=== PATIENT | female | born 1970 | race Caucasian/White ===

== ENCOUNTER 2020-08-18 12:24 | Emergency (ER) | payer MEDICAID ==
[~2020-08-18] VITALS: Ht 160 cm; Wt 44.5 kg
[2020-08-18 12:34] VITALS: Ht 160 cm; Wt 44.5 kg
[2020-08-18] MEDS ORDERED: KLONOPIN (12:36)
[2020-08-18] MEDS ORDERED: SEROQUEL (12:36)
[2020-08-18] MEDS ORDERED: TRAZODONE HCL150 MG (12:36)
[2020-08-18] MEDS ORDERED: ALBUTEROL (12:37)
[2020-08-18 13:23] LABS: BASOPHILS 1.2 % (0-2); EOSINOPHILS 3.2 % (0-7); HEMATOCRIT 36.8 % (36.0-48.0); HEMOGLOBIN 11.6 g/dL (12-16); IMMATURE GRANULOCYTES 0.2 % (0-5); LYMPHOCYTE ABS# 2.05 10x3/uL (1.18-3.74); MCH 24.4 pg (26.0-34.0); MCHC 31.5 g/dL (31.0-37.0); MCV 77.3 fL (80.0-100.0); MEAN PLATELET VOLUME 8.7 fL (7.4-10.4); MONOCYTES 10.3 % (2-11); NEUTROPHIL ABS# 3.58 10x3/uL (1.56-6.13); NEUTROPHILS 54.1 % (40-80); PLATELET COUNT 305 10x3/uL (130-400); RBC 4.76 10x6/uL (4.00-5.40); RDW 23.4 % (11.5-14.5); WBC 6.6 10x3/uL (4.8-10.8)
[2020-08-18 13:30] LABS: CALC OSMOLALITY 279 mosm/kg (275-300); CALCIUM 9.1 mg/dL (8.5-10.1); CARBON DIOXIDE 25.5 mmol/L (21.0-32.0); CHLORIDE - SERUM 104 mmol/L (98-107); CREATININE - SERUM 0.8 mg/dL (0.6-1.3); GLUCOSE 92 mg/dL (74-106); POTASSIUM - SERUM 4.5 mmol/L (3.5-5.1); SODIUM 139 mmol/L (136-145); UREA NITROGEN 17 mg/dL (7-18); eGFR NON AFRICAN AMERICAN 81 mL/min (90-120)
[2020-08-18 13:35] LABS: ALBUMIN 3.6 g/dL (3.4-5.0); ALKALINE PHOSPHATASE 40 U/L (30-120); ALT (SGPT) 11 U/L (10-68); BILIRUBIN - TOTAL 0.16 mg/dL (0.2-1.3); PROTEIN - SERUM 7.4 g/dL (6.4-8.2)
[2020-08-18 13:49] VITALS: BP 111/73
== END 2020-08-18 15:50 | disposition other institution (70) ==
LOC: D.ER 12:24
PROVIDERS: Family Medicine
DX: H61.002 Unspecified perichondritis of left external ear (principal)